=== PATIENT | male | born 1965 | race Caucasian/White ===

== ENCOUNTER 2016-12-30 07:24 | Day surgery (SDC) | payer BC, OTHER ==
[2016-12-25 14:57] VITALS: BMI 31.4
[2016-12-30] MEDS ORDERED: LIDOCAINE HCL/PF 2% SDV 5ML VIAL ONE (07:40)
[2016-12-30] MEDS ORDERED: PROPOFOL 20 ML ONE ×2 (07:40)
[2016-12-30 09:36] VITALS: PULSE 71
[2016-12-30 09:37] VITALS: BP 110/58; TEMP 98
--- NOTE | 2016-12-31 11:09 | PATH ---
Surgical Pathology Report Patient Name: MASOOD VILLA [facility]. Rec. #: [id number] /Age/Gender: 1965 (Age: 51) / M Account: [id number] Location: [facility]-ENDOSCOPY Taken: 12/30/2016 Received: 12/30/2016 Reported: 12/31/2016 Physicians: Joel Christine M.D. Specimen(s) Received BX 20CM COLON Clinical History Rule out colon cancer Colonic polyp Final Diagnosis COLON, 20 CM, BIOPSY: HYPERPLASTIC POLYP. Electronically Signed Eran Castro M.D. Gross Description Received in formalin, labeled "20 cm" is a christiansen, irregular portion of soft tissue measuring 0.3 cm. in greatest dimension. The specimen is submitted in toto in one cassette. /12/30/201612/30/2016
== END 2016-12-30 09:38 | disposition home or self-care (01) ==
LOC: FASU-ENDO 07:24
PROVIDERS: ATTEND Internal Medicine Gastroenterology
PROC: 0DBN8ZX Excision of Sigmoid Colon, Via Natural or Artificial Opening Endoscopic, Diagnostic (ICD-10-PCS; principal; 2016-12-30 08:49)
DX: Z12.11 Encounter for screening for malignant neoplasm of colon (principal); D12.5 Benign neoplasm of sigmoid colon
CPT/HCPCS: 88305-TC

== ENCOUNTER 2017-03-16 10:25 | Emergency (ER) | payer BC ==
--- NOTE | 2017-03-16 10:36 | PDOC ---
History of Present Illness - General Chief Complaint: Injury Stated Complaint: PUNCTURE TO RIGHT FOOT WITH NAIL Time Seen by Provider: 03/16/17 10:30 History Source: Patient Exam Limitations: No Limitations - History of Present Illness Initial Comments: 03/16/17 10:33 51 y/o male with puncture wound to right heel after stepping on a nail. Patient is not up to date with Tetanus. Hurts to walk on it. Nail was intact and was wearing shoes. No swelling or bleeding. Severity: mild Past History - Past Medical History Allergies/Adverse Reactions: Allergies Allergy/AdvReac Type Severity Reaction Status Date / Time No Known Drug Allergies Allergy Verified 03/16/17 11:02 Home Medications: Ambulatory Orders Cephalexin [Keflex] 500 mg PO TID #15 capsule 03/16/17 Anemia: No Asthma: No Cancer: No Cardiac Disorders: No CVA: No COPD: No CHF: No Dementia: No Diabetes: No GI Disorders: No Disorders: No HTN: No Hypercholesterolemia: No Liver Disease: No Seizures: No Thyroid Disease: No - Surgical History Abdominal Surgery: No Appendectomy: Yes (1981) Cardiac Surgery: No Cholecystectomy: No Lung Surgery: No Neurologic Surgery: No Orthopedic Surgery: No - Psycho/Social/Smoking Cessation Hx Smoking History: Never smoked Have you smoked in the past 12 months: No Hx Alcohol Use: Yes (RARELY) Drug/Substance Use Hx: No Substance Use Type: Alcohol Hx Substance Use Treatment: No Review of Systems - Review of Systems Able to Perform ROS?: Yes Is the patient limited Malay proficient: No Constitutional: No: Chills, Fever Respiratory: No: Cough, Shortness of Breath Musculoskeletal: No: Back Pain, Joint Pain Integumentary: No: Bruising, Erythema Neurological: No: Numbness, Paresthesia All Other Systems: Reviewed and Negative *Physical Exam - Physical Exam General Appearance: Yes: Nourished, Appropriately Dressed Respiratory/Chest: positive: Lungs Clear, Normal Breath Sounds Cardiovascular: positive: Regular Rhythm, Regular Rate, S1, S2. negative: Edema , JVD Vascular Pulses: Femoral (R): 4+, Femoral (L): 4+, Carotid (R): 4+, Carotid (L) : 4+, Dorsalis-Pedis (R): 4+, Doralis-Pedis (L): 4+ Lymphatic: negative: Adenopathy, Tenderness, Other Musculoskeletal: positive: Normal Inspection. negative: CVA Tenderness Extremity: positive: Normal Capillary Refill, Normal Range of Motion. negative : Normal Inspection (small puncture wound to heel, no bleeding or swelling non tender, mild erythema), Tender, Delayed Capillary Refill, Swelling, Calf Tenderness Integumentary: positive: Normal Color, Dry, Warm. 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 Pt is in agreement with plan 03/16/17 11:20 Pt is having puncture wound cleaned with Betadine and saline Will discharge home *DC/Admit/Observation/Transfer Diagnosis at time of Disposition: Puncture wound of foot Qualifiers: Encounter type: initial encounter Laterality: right Qualified Code(s): S91.331A - Puncture wound without foreign body, right foot, initial encounter - Discharge Dispostion Disposition: HOME Condition at time of disposition: Stable Admit: No - Patient Instructions Printed Discharge Instructions: DI for Puncture Wound Additional Instructions: Keep clean Keflex 500mg 3x/day for 5 days Tylenol, rest, elevate, ice If worsen return to ER
[2017-03-16] MEDS ORDERED: DIPHTH,PERTUSS(ACELL),TET 0.5 ML DISP.SYRIN IM ONE (10:37)
[2017-03-16 11:01] VITALS: BP 138/93; PULSE 88; TEMP 98.7; BMI 31.6
== END 2017-03-16 11:29 | disposition home or self-care (01) ==
LOC: FER 10:25
PROC: 3E0234Z Introduction of Serum, Toxoid and Vaccine into Muscle, Percutaneous Approach (ICD-10-PCS; principal; 2017-03-16)
DX: S91.331A Puncture wound without foreign body, right foot, initial encounter (principal); X58.XXXA Exposure to other specified factors, initial encounter; Y93.89 Activity, other specified; Y92.9 Unspecified place or not applicable
CPT/HCPCS: 90715; 99281-25